=== PATIENT | male | born 1990 | race African-American/Black ===

== ENCOUNTER 2022-10-12 03:02 | Emergency (ER) | payer OTHER ==
[~2022-10-12] VITALS: Ht 177.8 cm; Wt 57.2 kg
[2022-10-12 05:34] VITALS: BP 148/112
== END 2022-10-12 05:36 | disposition home or self-care (01) ==
LOC: EMS 03:05
DX: Z02.79 Encounter for issue of other medical certificate (principal); F17.210 Nicotine dependence, cigarettes, uncomplicated; V98.8XXA Other specified transport accidents, initial encounter; Y93.89 Activity, other specified; Y92.89 Other specified places as the place of occurrence of the external cause; Y99.8 Other external cause status
CPT/HCPCS: 72040; 99283